=== PATIENT | male | born 1945 | race Caucasian/White ===

== ENCOUNTER 2020-01-16 20:21 | Emergency (ER) | payer MEDICARE, MEDICAID, SELFPAY ==
[2020-01-16 20:25] VITALS: BP 141/82; PULSE 68; RESP 16; TEMP 37.1; O2SAT 98; BMI 22.6
--- NOTE | 2020-01-16 20:42 | W.ED.WOUNDLC ---
HPI - Wound/Laceration General: Chief Complaint: Wound/Laceration Stated Complaint: CAT ATTACK/R HAND Time Seen by Provider: 01/16/20 20:33 Source: patient Mode of arrival: ambulatory Limitations: no limitations History of Present Illness: HPI narrative: Patient was trying to get his sister's cat back in the house when it turned and bit and scratched at his right hand. Patient sustained several skin tears to the right hand. Patient cannot recall last tetanus. Patient is on a anticoagulant. Patient appears well. Patient reports history of coronary artery disease and and medications for heart attack last year. Review of Systems General: Reports: 10 or more systems reviewed and unremarkable except in HPI and below Skin/Breast: Reports: other (Skin tear, laceration.) [facility] ED PFSH: Medical History (Updated 01/16/20 @ 21:12 by SANDRA Nunez) Hyperlipidemia Renal failure Social History Smoking and tobacco status: never smoked Physical Exam Const: COMMON NORMALS: no apparent distress and oriented x3 GENERAL APPEARANCE: cooperative HENMT: COMMON NORMALS: normocephalic, TM's normal bilaterally and external nose normal HEAD & SCALP: normal to inspection and normocephalic NOSE: external nose normal TYMPANIC MEMBRANE: TM's normal bilaterally MOUTH: oral and palatal mucosa normal THROAT: posterior oropharynx normal Eye: GENERAL EYE: normal appearance of both eyes Neck/C-Spine: COMMON NORMALS: full ROM Lymph: LYMPHATIC: no lymphadenopathy noted Chest: COMMONS NORMALS: inspection of chest normal Resp: COMMON NORMALS: normal respiratory effort EFFORT & INSPECTION: Yes able to speak in complete sentences Cardio: COMMON NORMALS: regular rate and regular rhythm RATE: regular rate RHYTHM: regular rhythm GI: COMMON NORMALS: non-tender : COMMON NORMALS: Yes no CVA tenderness BLADDER/KIDNEY EXAM: Yes no CVA tenderness Back/Pelvis: COMMON NORMALS: no CVA tenderness and thoracic and lumbar spine normal to inspection Extremity: COMMON NORMALS: normal to inspection Neuro: COMMON NORMALS: oriented x3 and moves all extremities Psych: COMMON NORMALS: mental status grossly normal and cooperative Skin: NARRATIVE SKIN EXAM: Patient has multiple skin tears and puncture wounds to the right hand. Patient has 1 significant tear that may be classified as a laceration due to its deep tissue involvement. It is in the webbing between the third and fourth digit. Patient has normal range of motion of the hand. Normal sensation and capillary refill. Bleeding is controlled. Procedures Laceration Laceration 1: Site: hand Side (If applicable): right Size (cm): 3 Description: irregular Depth: simple, single layer Local Anesthetic: lidocaine 1% Amount of anesthesia used (mL): 4 Pre-repair: wound explored, irrigated extensively and deep structures intact Skin layer closed with: nylon Size (cm): 4-0 Number of sutures: 4 Technique: simple, interrupted Course Vital Signs: Vital signs: Vital Signs Temperature 98.8 F 01/16/20 20:25 Pulse Rate 68 01/16/20 20:25 Respiratory Rate 16 01/16/20 20:25 Blood Pressure 141/82 01/16/20 20:25 Pulse Oximetry 98 01/16/20 20:25 MDM - Wound/Laceration MDM Narrative: Medical decision making narrative: Patient comes in today with injury to the right hand. On exam there was multiple lacerations to the hand, normal tendon function, and no foreign body. One laceration was significant enough to expose lower layers of the structure. Wounds were closed with Steri-Strips and the larger laceration was closed with 4 sutures. Patient tolerated procedure well. Considered foreign body in the wound, wound infection, need for prophylaxis immunizations, and prophylaxis antibiotic. Patient is tolerated procedure well reviewed postprocedure care. Patient reported understanding. Patient had his tetanus shot up-to-date. Patient reported that immunizations of the cat was up today and it was his sister cat that was a indoor feline. Patient denied any other further concerns patient was placed on Augmentin for prophylaxis. Patient reported understanding. Discharge Plan Discharge Patient Disposition: Home, Self-Care Clinical Impression: Animal scratch Skin tear of hand without complication Qualifiers: Encounter type: initial encounter Laterality: right Qualified Code(s): S61.411A - Laceration without foreign body of right hand, initial encounter Condition: Stable Prescriptions: New amoxicillin-pot clavulanate 875-125 mg tablet 1 tab PO BID Qty: 20 RF: 0 No Action isosorbide mononitrate 30 mg tablet extended release 24 hr 15 mg PO BID Qty: 30 RF: 3 atorvastatin 80 mg tablet 80 mg PO DAILY RF: 0 Brilinta 90 mg tablet 90 mg PO BID RF: 0 aspirin [Adult Low Dose Aspirin] 81 mg tablet,delayed release (DR/EC) 81 mg PO DAILY RF: 0 nitroglycerin [Nitrostat] 0.4 mg tablet, sublingual 0.4 mg SUBLINGUAL Q5M PRN (Reason: chest pain) 30 Days Qty: 25 RF: 3 Discharge Orders: Discharge Order (Routine); Ordered 01/16/20 Ordered By: Min Mata Discharge Diet: Usual diet Discharge Activity: Increase activity as tolerated Patient Instructions: Skin Tear (ED) Activity Restrictions/Additional Instructions: Keep wound clean and dry Keep initial dressing on for 2-3 days unless it becomes wet or soiled Change dressing as needed Clean wound with mild soap and water allow strips to come off on their own Follow-up with primary care in one week Return to ER for worsening pain, or fever Coding Level of Care Code ED Content Production Specialist for Polly Fwanahi Exam Comprehensive
[2020-01-16] MEDS: lidocaine 1% INJ 20 mL 6 ML SUBCUT (21:30)
[2020-01-16] MEDS: amoxicillin-clav 875-125 mg Tablet 1 TAB PO (23:25)
--- NOTE | 2020-01-16 23:32 | PC.NURSE ---
Right hand cleaned and dressed per order, patient tolerated well. Home care instructions given and explained to patient with all questions asked and answered.
== END 2020-01-16 23:34 | disposition home or self-care (01) ==
PROVIDERS: Emergency Provider Nurse Practitioner Family
DX: S61.411A Laceration without foreign body of right hand, initial encounter (principal); W55.03XA Scratched by cat, initial encounter; E78.5 Hyperlipidemia, unspecified; N19 Unspecified kidney failure
CPT/HCPCS: 12002; 12345; 99282; 99283; A6446; J2001

== ENCOUNTER 2021-04-27 07:47 | Emergency (ER) | payer MEDICARE, MEDICAID, SELFPAY ==
[2021-04-27 07:53] VITALS: BP 117/60; PULSE 84; RESP 15; TEMP 37.2; O2SAT 96; BMI 22.4
--- NOTE | 2021-04-27 07:55 | XRR_ITS ---
PROCEDURE INFORMATION: Exam: XR Chest Exam date and time: 04/27/2021 7:55 AM Age: 76 years old Clinical indication: Shortness of breath; Additional info: SOB TECHNIQUE: Imaging protocol: XR of the chest. Views: 2 views. COMPARISON: CR Chest 1 [place] [id number] 08/18/2019 12:08 PM FINDINGS: Lungs: Tiny benign granulomas are present in the lungs. No acute pulmonary infiltrates are seen. Pleural spaces: Unremarkable. No pleural effusion. No pneumothorax. Heart/Mediastinum: Unremarkable. No cardiomegaly. Bones/joints: Unremarkable. XR/XR chest 2V* [id number] IMPRESSION: No acute abnormalities.
--- NOTE | 2021-04-27 07:55 | ECG_ITS ---
[facility] Test Date: 2021-04-27 Pat Name: Dorian Reynoso Department: Room: Gender: Male Executive Vp: : 1945 Requested By: Jigar Arenas Order Number: [id number] Yonathan MD: Maverick Bansal M.D. Measurements Intervals [place] Rate: 76 P: 70 MT: 147 QRS: 52 QRSD: 93 T: 63 QT: 365 QTc: 411 Interpretive Statements SINUS RHYTHM Compared to ECG 08/19/2019 06:03:21 No significant changes Electronically Signed On 04-27-2021 20:06:39 CDT by Maverick Bansal M.D. [email or web address] community [email or web address] [email or web address].[employer]/store/OM/[id number]
--- NOTE | 2021-04-27 07:56 | W.ED.GENADLT ---
HPI - General Adult General: Chief complaint: COVID symptoms Stated complaint: cough, weakness, body aches Time Seen by Provider: 04/27/21 07:52 History of Present Illness: HPI narrative: This patient is a 76-year-old male who presents to the emergency department complaint of body aches and occasional cough. Patient states this been going on since the eighth of the month approximately 10 days. Patient reportedly has had a negative Covid swab. Patient states she just still feels the same really cannot describe how he feels. Patient does not appear to be acutely sick. Denies any history of smoking. Denies fever. Will do medical evaluation treat patient here with significant other with similar symptoms. Onset (ago): day(s) Severity: mild Associated symptoms: Deny chest pain, dyspnea, headache(s), nausea, rash, palpitations or vomiting Review of Systems General: Reports: 10 or more systems reviewed and unremarkable except in HPI and below Const: Denies: fever(s), chills, body aches or fatigue Eyes: Denies: change in vision or blurry vision ENMT: Denies: throat pain, hoarseness or mouth pain Card: Denies: chest pain, palpitations, irregular heart rhythm, edema, swelling of feet/ankles or lightheadedness Resp: Reports: non-productive cough; Denies: dyspnea, productive cough, wheezing or pain on inspiration GI: Denies: abdominal pain, nausea or vomiting : Denies: flank pain, dysuria, urinary frequency, urinary urgency or urinary hesitancy Musc: Denies: neck pain, back pain, extremity pain, extremity swelling, joint pain, joint swelling, joint redness, joint warmth or limited range of motion Skin/Breast: Denies: rash, pruritus, erythema or skin tenderness Neuro: Denies: headache(s), numbness in extremities or weakness in extremities Psych: Denies: anxiety or depression PFSH ED PFSH: Medical History Coronary artery disease Essential hypertension Hyperlipidemia Renal failure Social History Smoking and tobacco status: never smoked Physical Exam Const: COMMON NORMALS: no acute distress, average body habitus, patient oriented x3, no limitations, healthy appearing, alert and well nourished HENMT: COMMON NORMALS: normocephalic, atraumatic, hearing grossly normal bilaterally, external ears normal, EAC's normal, TM's normal bilaterally, Normal external nose present, Normal nasal mucous membranes and turbinates present, moist oral mucous membranes, oropharynx normal, dentition normal and gingiva normal HEAD & SCALP: normocephalic and atraumatic NOSE: Normal external nose present and Normal nasal mucous membranes and turbinates present EXTERNAL EAR: Yes external ears normal EXTERNAL AUDITORY CANAL: EAC's normal TYMPANIC MEMBRANE: TM's normal bilaterally Neck/C-Spine: COMMON NORMALS: full ROM, no lymphadenopathy, supple, no meningeal signs, no JVD, Thyroid normal and No carotid bruits THYROID: Thyroid normal Chest: COMMONS NORMALS: normal inspection of the chest, normal palpation of entire chest wall, normal inspection of the breasts and normal palpation of the breasts Breast/axilla inspection: Yes normal inspection of the breasts BREAST/AXILLA PALPATION: Yes normal palpation of the breasts Resp: COMMON NORMALS: normal respiratory effort, No retractions, No use of accessory muscles, clear to auscultation bilaterally and percussion normal AUSCULTATION: clear to auscultation bilaterally PERCUSSION: percussion normal Cardio: COMMON NORMALS: no JVD, regular rate, regular rhythm, S1 normal heart sound present, S2 normal heart sound present, No gallops present (Cardio), No clicks present (Cardio), No murmurs present (Cardio), No rub (Cardio) and Peripheral pulses 2+ throughout RATE: regular rate RHYTHM: regular rhythm HEART SOUNDS: S1 normal heart sound present and S2 normal heart sound present PERIPHERAL PULSES: Peripheral pulses 2+ throughout GI: COMMON NORMALS: Normal to inspection, nondistended, normoactive bowel sounds present, Soft to palpation, non-tender, No hepatosplenomegaly present, no masses and no bruits PALPATION: Yes Soft to palpation and Yes No hepatosplenomegaly present : COMMON NORMALS: Yes no CVA tenderness BLADDER/KIDNEY EXAM: Yes no CVA tenderness Back/Pelvis: COMMON NORMALS: no CVA tenderness, thoracic and lumbar spine normal to inspection, no thoracic nor lumbar tenderness, thoraco-lumbar ROM normal and straight leg raise negative bilaterally Extremity: COMMON NORMALS: normal to inspection, full ROM, capillary refill normal, no joint enlargement, no clubbing, cyanosis or edema, no calf tenderness and no pedal edema Neuro: COMMON NORMALS: patient oriented x3 SENSORIUM/ORIENTATION: Yes alert MENINGEAL SIGNS: Yes no meningeal signs Course Reevaluation(s): Reevaluation #1: Patient is stable but appears to be Covid positive. Chronic conditions stable. O2 sat 98% on room air vital signs are stable. Patient is encouraged p.o. fluids. Will give patient a shot of Decadron patient be discharged home follow-up with PCP in 1 week patient should self quarantine as instructed. Return to the emergency department as needed Time: 09:09 Vital Signs: Vital signs: Vital Signs Temperature 98.9 F 04/27/21 07:53 Pulse Rate 84 04/27/21 07:53 Respiratory Rate 15 04/27/21 07:53 Blood Pressure 117/60 04/27/21 07:53 Pulse Oximetry 96 04/27/21 07:53 MDM - General Adult MDM Narrative: Medical decision making narrative: Patient appears to be Covid positive. Patient is stable O2 sat 98%. Will discharge patient home with viral syndrome. Patient is stable but appears to be Covid positive. Chronic conditions stable. O2 sat 98% on room air vital signs are stable. Patient is encouraged p.o. fluids. Will give patient a shot of Decadron patient be discharged home follow-up with PCP in 1 week patient should self quarantine as instructed. Return to the emergency department as needed Lab Data: Labs: Lab Results 04/27/21 Range/Units 08:10 SARS-CoV-2 Ag (Rap id) Positive H (Negative) EKG Data^: EKG 1: Attestation: I personally reviewed and interpreted this EKG as follows: EKG interpretation date: 04/27/21 EKG interpretation time: 08:17 Prior EKG tracings: not available for review Interpretation: Sinus rhythm with a heart rate of 76 normal EKG Discharge Plan Discharge Patient Disposition: Home Clinical Impression: Viral infection, COVID-19 Condition: Stable Prescriptions: No Action aspirin [Adult Low Dose Aspirin] 81 mg tablet,delayed release (DR/EC) 81 mg PO DAILY RF: 0 isosorbide mononitrate 30 mg tablet extended release 24 hr 15 mg PO BID Qty: 90 RF: 3 nitroglycerin [Nitrostat] 0.4 mg tablet, sublingual 0.4 mg SUBLINGUAL Q5M PRN (Reason: chest pain) 30 Days Qty: 25 RF: 3 Brilinta 90 mg tablet 90 mg PO BID 90 Days Qty: 180 RF: 3 atorvastatin 80 mg tablet 80 mg PO DAILY Qty: 90 RF: 3 Discharge Orders: Discharge ED (Routine); Ordered 04/27/21 Ordered By: Jigar Arenas Discharge Diet: Advance as tolerated Discharge Activity: Resume usual activity Patient Instructions: Opioid Safety Activity Restrictions/Additional Instructions: Encourage p.o. fluids. Tylenol Motrin as needed for fever pain. Self quarantine as instructed. Follow-up with PCP in 7 to 10 days. Return to the emergency department as needed. Coding Level of Care Code ED Telecommunications Project Manager for Polly Fwanahi Exam Comprehensive
[2021-04-27 08:47] LABS: SARS Covid-2 Antigen Positive (Negative)
[2021-04-27 08:59] VITALS: O2SAT 96
[2021-04-27 10:15] VITALS: BP 124/66; PULSE 85; O2SAT 96
[2021-04-27] MEDS: dexamethasone 10 mg/mL INJ IM (10:15)
== END 2021-04-27 10:13 | disposition home or self-care (01) ==
PROVIDERS: Emergency Provider Emergency Medicine
DX: U07.1 COVID-19 (principal); Z79.82 Long term (current) use of aspirin; I25.10 Atherosclerotic heart disease of native coronary artery without angina pectoris; I10 Essential (primary) hypertension; E78.5 Hyperlipidemia, unspecified
CPT/HCPCS: 71046; 87426; 93005; 96372; 99283; J1100

== ENCOUNTER → 2022-06-03 13:06 | Outpatient (BNVA) | payer MEDICARE, MEDICAID, SELFPAY | PROVIDERS: Visit Provider Internal Medicine Cardiovascular Disease | DX: I25.10 Atherosclerotic heart disease of native coronary artery without angina pectoris (principal); I10 Essential (primary) hypertension; E78.00 Pure hypercholesterolemia, unspecified | CPT/HCPCS: 99213; 99214 ==

== ENCOUNTER → 2022-12-08 12:56 | Outpatient (BNVA) | payer MEDICARE, MEDICAID, SELFPAY | PROVIDERS: Visit Provider Internal Medicine | DX: I25.10 Atherosclerotic heart disease of native coronary artery without angina pectoris (principal); E78.00 Pure hypercholesterolemia, unspecified; I12.9 Hypertensive chronic kidney disease with stage 1 through stage 4 chronic kidney disease, or unspecified chronic kidney disease; N18.9 Chronic kidney disease, unspecified | CPT/HCPCS: 99214 ==

== ENCOUNTER 2023-09-19 13:07 | Emergency (ER) | payer MEDICARE, MEDICAID, SELFPAY ==
[2023-09-19 13:12] VITALS: BP 140/83; PULSE 101; RESP 17; TEMP 36.3; O2SAT 98
--- NOTE | 2023-09-19 13:22 | ED_ITS ---
HPI - SOB/Dyspnea 2 General: Chief Complaint: Shortness of Breath/Dyspnea Stated Complaint: SOB Time Seen by Provider: 09/19/23 13:22 History of Present Illness: HPI Narrative: 78-year-old male presents emerged part w ith complaints of shortness of breath that started yesterday. He states he has not had any past medical history which includes breathing issues but does endorse having a cardiac stent placed previously. He states he is not taking any of his prescribed medications and denies any previous home oxygen use. He states that he has increased exertional dyspnea since yesterday. He also states he has increased fatigue and weakness as well as a nonspecific nonproductive cough. Review of Systems 2 General: Reports: 10 or more systems reviewed and unremarkable except in HPI and below Const: Reports: fatigue and malaise Resp: Reports: dyspnea and non-productive cough PFSH ED 2 PFSH: Medical History Coronary artery disease Essential hypertension Hyperlipidemia Renal failure Social History Smoking and tobacco/nicotine status: never used tobacco/nicotine Physical Exam 2 Narrative: EXAM NARRATIVE: Constitutional: the patient appears well nourished and with normal development. Vital signs reviewed as documented. HENMT: Normocephalic, atraumatic. Extermal ears with normal appearance without drainage. Nose without drainage, normal appearance. Mucus membranes moist. Neck is supple, No jugular venous distension, trachea is midline, no appreciable carotid bruits. No lymphadenopathy. No meningeal signs. Flexion, extension and lateral rotation is without pain. Eyes: Pupils are equal, round, reactive to light and accommodation. No scleral icterus. Extra-ocular movement are intact. Thorax is symmetrical and with equal rise and fall with respirations. Resp: Lungs are clear to auscultation. No wheezes, rales, crackles or ronchi at present. Cardio: Regular rate and rhythm. Positive S1, S2. No appreciable murmurs, rubs or gallops. GI: Abdominal exam reveals normal bowel sounds to all quadrants. No organomegaly. No obvious palpable masses noted. No hepatomegally appreciated. Soft, nontender to palpation. Extremity: Extremities are non-edematous and both femoral and pedal pulses are 2+ and equal bilaterally. Moves all extremities well, sensation in all extremities. Neuro: Alert and oriented x4, person, place, time and situation. Cranial nerves II through XII are grossly intact, there is no focal neurological deficits that I can appreciate at present. Motor strength in the upper and lower extremities are equal and bilateral 5/5. Psych: Cooperative, calm, normal thought process, appropriate judgment. Skin: No lesions, rashes. No gross abnormalities noted. Back: Symmetrical, no obvious deformity, No CVA tenderness Course 2 Reevaluation(s): Reevaluation #1: Patient and the patient's family member state that they need to leave because no one drives after dark. I did advise them that the labs that I have resulted do not show any significant findings and did encourage them to stay for the second cardiac enzyme I stated that they would follow-up with the patient's primary care physician. I did advise them that they may return to the emergency department at any time for any reason and at present it does look like the patient has a upper respiratory viral illness. I did encourage and discussed the importance of taking his medications as previously prescribed by his primary care provider and rug setter axminster. I also encouraged him to follow-up with a rug setter [place] to discuss that he had discontinued his medications and to discuss with the primary care provider and rug setter axminster the plan of care for restarting his medications. Time: 15:30 Vital Signs: Vital signs: Vital Signs Temperature 97.4 F L 09/19/23 13:12 Pulse Rate 101 H 09/19/23 13:12 Respiratory Rate 17 09/19/23 13:12 Blood Pressure 140/83 09/19/23 13:12 Pulse Oximetry 98 09/19/23 13:12 Oxygen Delivery Me thod Room Air 09/19/23 13:12 MDM - SOB/Dyspnea Medical Decision Making Physical exam completed and documented, I will obtain serial cardiac enzymes, serial twelve-lead EKGs, chest x-ray, CBC, CMP, urinalysis, B-type natriuretic peptide, PT/PTT/INR, and a chest x-ray. I have reviewed any previous and pertinent medical records for assist in obtaining beneficial medical information to improved the care and treatment of the patient. Medical Records I reviewed the patient's medical records. Lab Data I reviewed the patient's lab results. 09/19/23 13:12 09/19/23 13:12 Labs/Radiology: Radiology Impressions Chest X-Ray 09/19/23 13:24 IMPRESSION: No acute findings. Laboratory Results WBC 9.41 10^3/uL (3.29-11.43) 09/19/23 13:12 RBC 4.10 10^6/uL (3.85-5.65) 09/19/23 13:12 Hgb 13.20 g/dL (11.27-16.99) 09/19/23 13:12 Hct 40.5 % (37-53) 09/19/23 13:12 MCV 98.8 fl (82-101) 09/19/23 13:12 MCH 32.2 pg (27-33) 09/19/23 13:12 MCHC 32.6 g/dL (30-55) 09/19/23 13:12 RDW 14.0 % (12.1-15.1) 09/19/23 13:12 Plt Count 239 10^3/cmm (157-399) 09/19/23 13:12 MPV 10.0 fL (7.4-10.4) 09/19/23 13:12 Neut % (Auto) 78.7 % 09/19/23 13:12 Lymph % (Auto) 13.6 % 09/19/23 13:12 [place] % (Auto) 6.6 % 09/19/23 13:12 Eos % (Auto) 0.3 % 09/19/23 13:12 Baso % (Auto) 0.4 % 09/19/23 13:12 Neut # (Auto) 7.40 10^3/uL (1.8-7.7) 09/19/23 13:12 Lymph # (Auto) 1.3 10^3/uL (0.8-4.8) 09/19/23 13:12 [place] # (Auto) 0.6 10^3/uL (0.2-0.9) 09/19/23 13:12 Eos # (Auto) 0.0 10^3/uL (0.0-0.8) 09/19/23 13:12 Baso # (Auto) 0.0 10^3/uL (0.0-0.1) 09/19/23 13:12 Nucleated RBC % (auto) 0 % 09/19/23 13:12 Nucleated RBCs # 0.0 /100WBC 09/19/23 13:12 PT 13.30 SECONDS (12.1-14.9) 09/19/23 13:12 INR 0.99 (0.8-1.2) 09/19/23 13:12 Sodium 134 mmol/L (136-145) L 09/19/23 13:12 Potassium 4.3 mmol/L (3.5-5.1) 09/19/23 13:12 Chloride 98 mmol/L (98-107) 09/19/23 13:12 Carbon Dioxide 23 mmol/L (22-29) 09/19/23 13:12 Anion Gap 17.3 (5-19) 09/19/23 13:12 BUN 13 mg/dL (8-23) 09/19/23 13:12 Creatinine 1.3 mg/dL (0.7-1.2) H 09/19/23 13:12 GFR Calculation Not Reportable 09/19/23 13:12 Glucose 117 mg/dL (65-115) H 09/19/23 13:12 Calculated Osmolality 279 mOsm/kg (285-295) L 09/19/23 13:12 Calcium 9.9 mg/dL (8.5-10.5) 09/19/23 13:12 Total Bilirubin 0.7 mg/dL (0.15-1.2) 09/19/23 13:12 AST 19 U/L (0-40) 09/19/23 13:12 ALT 10 U/L (0-41) 09/19/23 13:12 Alkaline Phosphatase 78 U/L (40-130) 09/19/23 13:12 Troponin T Baseline < 6 ng/L (0-15) 09/19/23 13:12 NT-Pro-B Natriuret Pep 90 pg/mL (0-450) 09/19/23 13:12 Total Protein 7.2 g/dL (6.6-8.7) 09/19/23 13:12 Albumin 4.3 g/dL (3.5-5.2) 09/19/23 13:12 Globulin 2.9 g/dL (1.3-4.6) 09/19/23 13:12 Influenza Type A Ag negative (Negative) 09/19/23 13:57 Influenza Type B Ag negative (Negative) 09/19/23 13:57 SARS-CoV-2 Ag (Rapid) negative (Negative) 09/19/23 13:57 All radiology interpretation(s) finalized by discharge EKG Data EKG 1: Interpretation: Twelve-lead EKG obtained at 1355 and reviewed at 1356 demonstrates normal sinus rhythm with a right incomplete bundle branch block. Ventricular rate is 99 [place] interval 153 QRS duration 94 QT 332, QTc 388. There is no ST elevation or depression to demonstrate acute ischemia or infarction at present. Discharge Plan Discharge Patient Disposition: Home Clinical Impression: Acute dyspnea, Upper respiratory infection, viral Condition: Stable Prescriptions: No Action aspirin [Adult Low Dose Aspirin] 81 mg tablet,delayed release (DR/EC) 81 mg PO DAILY Qty: 90 3RF atorvastatin 80 mg tablet 80 mg PO DAILY Qty: 90 3RF isosorbide mononitrate 30 mg tablet extended release 24 hr 15 mg PO BID Qty: 90 3RF Brilinta 90 mg tablet 90 mg PO BID Qty: 180 3RF nitroglycerin [Nitrostat] 0.4 mg tablet, sublingual 0.4 mg SUBLINGUAL Q5M PRN (Reason: chest pain) Qty: 25 3RF Rx Instructions: until response; do not exceed 3 doses per episode Discharge Orders: Discharge ED (Routine); Ordered 09/19/23 Ordered By: Tam Farah Discharge Diet: Advance as tolerated Discharge Activity: Resume usual activity Patient Instructions: Opioid Safety, Pain Management Activity Restrictions/Additional Instructions: Activity Restrictions/Additional Instructions: Thank you for choosing [facility] for your healthcare needs today. Please realize that you were seen in the Emergency Department and that we are providing you with an emergency medical screening exam and this may not be a complete and all inclusive of all the testing and or medical work-up that you may need to determine your ailment or severity of your illness. It is very important that you follow-up as instructed with your Primary care provider or Specialist for additional evaluation and to discuss your medical treatment plan. You may return to the Emergency Department should you have concerns or if your condition changes or worsens in any way. Coding Level of Care Code ED Electrical Assembler for Polly Cristina
--- NOTE | 2023-09-19 13:24 | ECG_ITS ---
[facility] Test Date: 2023-09-19 Pat Name: Dorian Reynoso Department: Room: Gender: Male Child And Youth Program Assistant: : 1945 Requested By: Tam Farah Order Number: [id number] Yonathan MD: Reggie Juarez M.D. Measurements Intervals [place] Rate: 99 P: 76 VT: 153 QRS: 62 QRSD: 94 T: 57 QT: 332 QTc: 426 Interpretive Statements SINUS RHYTHM INCOMPLETE RIGHT BUNDLE BRANCH BLOCK [90+ ms QRS DURATION, TERMINAL R IN V1/V2, 40+ ms S IN I/aVL/V4/V5/V6] Compared to ECG 04/27/2021 08:17:57 Incomplete right bundle-branch block now present Electronically Signed On 09-20-2023 15:53:10 SOUND PERSON by Reggie Juarez M.D. [id number]
--- NOTE | 2023-09-19 13:24 | XRR_ITS ---
PROCEDURE INFORMATION: Exam: XR Chest Exam date and time: 09/19/2023 1:33 PM Age: 78 years old Clinical indication: Dyspnea TECHNIQUE: Imaging protocol: Radiologic exam of the chest. Views: 1 view. COMPARISON: CR XR chest 2V* [id number] 04/27/2021 8:28 AM FINDINGS: Lungs: There is minimal atelectasis in the left lung base without definite infiltrate there is a calcified granuloma in the right lung as before Pleural spaces: Unremarkable. No pleural effusion. No pneumothorax. Heart/Mediastinum: Unremarkable. No cardiomegaly. Bones/joints: Unremarkable. XR/XR chest 1V portable [id number] IMPRESSION: No acute findings.
--- NOTE | 2023-09-19 13:54 | PC.PHAR ---
pt states has not taken any of his medications in about a month. 09/19/23
[2023-09-19 14:03] LABS: Basophils % 0.4 %; Eosinophils % 0.3 %; Hematocrit 40.5 % (37-53); Lymphocytes # 1.3 10^3/uL (0.8-4.8); Lymphocytes % 13.6 %; Mean Corpuscular HGB Conc 32.6 g/dL (30-55); Mean Corpuscular Hemoglobin 32.2 pg (27-33); Mean Corpuscular Volume 98.8 fl (82-101); Monocytes # 0.6 10^3/uL (0.2-0.9); Monocytes % 6.6 %; Neutrophils % 78.7 %; Nucleated Red Blood Cells % 0 %; Platelet Count 239 10^3/cmm (157-399); White Blood Count 9.41 10^3/uL (3.29-11.43)
[2023-09-19 14:20] LABS: INR 0.99 (0.8-1.2)
[2023-09-19 14:23] LABS: Influenza A by IFA negative (Negative); Influenza B by IFA negative (Negative); SARS Covid-2 Antigen negative (Negative)
[2023-09-19 14:27] LABS: Troponin(5th) Baseline < 6 ng/L (0-15)
[2023-09-19 14:37] LABS: Alanine Aminotransferase 10 U/L (0-41); Albumin Level 4.3 g/dL (3.5-5.2); Alkaline Phosphatase 78 U/L (40-130); Anion Gap 17.3 (5-19); Aspartate Amino Transferase 19 U/L (0-40); Blood Urea Nitrogen 13 mg/dL (8-23); Calcium 9.9 mg/dL (8.5-10.5); Carbon Dioxide 23 mmol/L (22-29); Chloride 98 mmol/L (98-107); Globulin 2.9 g/dL (1.3-4.6); Glucose 117 mg/dL (65-115); NT Pro B Type Natriuretic Pept 90 pg/mL (0-450); Osmolality Calculated 279 mOsm/kg (285-295); Potassium 4.3 mmol/L (3.5-5.1); Sodium 134 mmol/L (136-145); Total Bilirubin 0.7 mg/dL (0.15-1.2); Total Protein 7.2 g/dL (6.6-8.7)
[2023-09-19 15:46] LABS: Troponin 5 2HR 8.87 ng/L (0-15)
[2023-09-19 16:06] VITALS: BP 110/59; PULSE 102; O2SAT 97
== END 2023-09-19 16:08 | disposition home or self-care (01) ==
PROVIDERS: Emergency Provider Internal Medicine
DX: J06.9 Acute upper respiratory infection, unspecified (principal); R06.00 Dyspnea, unspecified; Z79.82 Long term (current) use of aspirin; Z11.52 Encounter for screening for COVID-19; I25.10 Atherosclerotic heart disease of native coronary artery without angina pectoris; I10 Essential (primary) hypertension; E78.5 Hyperlipidemia, unspecified
CPT/HCPCS: 36415; 71045; 80053; 83880; 84484; 85025; 85610; 87426; 87804; 93005; 99285

== ENCOUNTER 2023-12-08 11:52 | Emergency (ER) | payer MEDICARE, MEDICAID, SELFPAY ==
[2023-12-08] VITALS (48 sets, daily range): BP systolic 75–126; BP diastolic 51–88; PULSE 52–114; RESP 14–31; TEMP 37.8–38.4; O2SAT 91–99; BMI 21.7
--- NOTE | 2023-12-08 11:56 | XR_ITS ---
WS: [id number] Exam: XR chest 1V portable [id number] Date/Time of Exam: 12/08/2023 12:12 PM Reason For Exam: cp Comparison 09/19/2023. The lungs are clear and fully expanded. Normal cardiomediastinal silhouette and regional bony element s. Scattered calcified granulomas in both lungs. No pleural effusions. IMPRESSION: 1. No acute cardiopulmonary finding.
--- NOTE | 2023-12-08 11:56 | ECG_ITS ---
[facility] Test Date: 2023-12-08 Pat Name: Dorian Reynoso Department: Room: Gender: Male Media Specialist: : 1945 Requested By: Will Sarmiento Order Number: [id number] Yonathan MD: Lex Choudhury M.D. Measurements Intervals [place] Rate: 98 P: 80 [place]: 140 QRS: 24 QRSD: 104 T: 44 QT: 336 QTc: 431 Interpretive Statements SINUS RHYTHM INDETERMINATE AXIS LOW QRS VOLTAGE IN PRECORDIAL LEADS [QRS DEFLECTION < 1.0 mV IN CHEST LEADS] INCOMPLETE RIGHT BUNDLE BRANCH BLOCK [90+ ms QRS DURATION, TERMINAL R IN V1/V2, 40+ ms S IN I/aVL/V4/V5/V6] Compared to ECG 09/19/2023 13:55:12 Indeterminate axis now present Low QRS voltage now present Electronically Signed On 12-08-2023 12:09:28 CARBONIZER by Lex Choudhury M.D. [id number] f
[2023-12-08 12:45] LABS: Basophils % 0.3 %; Hematocrit 39.7 % (37-53); Lymphocytes # 0.8 10^3/uL (0.8-4.8); Lymphocytes % 11.2 %; Mean Corpuscular HGB Conc 32.7 g/dL (30-55); Mean Corpuscular Hemoglobin 32.7 pg (27-33); Mean Platelet Volume 9.6 fL (7.4-10.4); Monocytes # 0.3 10^3/uL (0.2-0.9); Monocytes % 3.8 %; Neutrophils # 5.96 10^3/uL (1.8-7.7); Neutrophils % 84.3 %; Nucleated Red Blood Cells % 0 %; Platelet Count 171 10^3/cmm (157-399); Red Blood Count 3.97 10^6/uL (3.85-5.65); White Blood Count 7.07 10^3/uL (3.29-11.43)
--- NOTE | 2023-12-08 13:14 | ED_ITS ---
HPI - Weakness 2 General: Chief complaint: Weakness Stated complaint: chest pain Time Seen by Provider: 12/08/23 13:13 History of Present Illness: 78-year-old male patient comes in today for complaints of weakness and malaise. Patient reports for the last 3 days he has been having bodyaches and occasional cough. Patient's female significant other states that usually he comes over every evening for dinner and to watch TV. For the last 2 days he stayed at her house because he has been feeling more poorly. Patient was brought in today due to to persistent symptoms and worsening condition. Patient has a history of OH 4 years ago with 2 stents placed. Patient takes routinely to antiplatelet agents, isosorbide, and atorvastatin. Patient appears in no pain. Patient appears unwell but not toxic. Patient denies history of diabetes or high blood pressure. Review of Systems 2 General: Reports: 10 or more systems reviewed and unremarkable except in HPI and below : Reports: urinary frequency PFSH ED 2 PFSH: Medical History Coronary artery disease Essential hypertension Hyperlipidemia Renal failure Social History Smoking and tobacco/nicotine status: never used tobacco/nicotine Physical Exam 2 Const: COMMON NORMALS: alert HENMT: COMMON NORMALS: normocephalic HEAD & SCALP: normocephalic Neck/C-Spine: COMMON NORMALS: no meningeal signs Resp: COMMON NORMALS: normal respiratory effort and clear to auscultation bilaterally AUSCULTATION: clear to auscultation bilaterally Cardio: COMMON NORMALS: regular rate RATE: regular rate GI: COMMON NORMALS: Soft to palpation and non-tender PALPATION: Yes Soft to palpation : COMMON NORMALS: Yes no CVA tenderness BLADDER/KIDNEY EXAM: Yes no CVA tenderness Back/Pelvis: COMMON NORMALS: no CVA tenderness and thoracic and lumbar spine normal to inspection Extremity: NARRATIVE EXTREMITY EXAM: Bilateral +1 edema to the ankles Neuro: SENSORIUM/ORIENTATION: Yes alert MENINGEAL SIGNS: Yes no meningeal signs Psych: COMMON NORMALS: cooperative Skin: COMMON NORMALS: turgor normal GENERAL SKIN EXAM: turgor normal Course 2 Vital Signs: Vital signs: Vital Signs Temperature 100.0 F H 12/08/23 15:38 Pulse Rate 83 12/08/23 15:38 Respiratory Rate 22 H 12/08/23 15:38 Blood Pressure 100/54 12/08/23 15:38 Pulse Oximetry 94 12/08/23 15:38 Oxygen Delivery Me thod Room Air 12/08/23 12:03 MDM - Weakness Medical Decision Making 70-year-old male patient comes in today with illness x 3 days. Patient has a cough and bodyaches and fever. Patient also reports some urinary frequency. Exam notes air movement throughout lung daley. Abdomen soft nontender. Active bowel sounds. Skin is warm and dry. Mild edema is noted to the lower extremities. Vital signs note a blood pressure of 96/56, pulse 100, and a temperature of 101.2. O2 sats is 93% on room air. Differential diagnosis includes upper respiratory infection, COVID, influenza, pneumonia, urinary tract infection, sepsis. Patient tested positive for influenza A. Chest x-ray noted no pneumonia. CBC was unremarkable. CMP noted a sodium 125, potassium 3.4, and creatinine 1.2. Patient does have some chronic kidney disease with a potassium that usually runs between 1.1 and 1.3. Believe the patient does have some mild dehydration. We went ahead and treated dehydration with 2 L of IV fluids. Patient had improvement of symptoms. Patient was discharged home in stable condition. Lab Data 12/08/23 12:28 12/08/23 12:28 Laboratory Results WBC 7.07 10^3/uL (3.29-11.43) 12/08/23 12:28 RBC 3.97 10^6/uL (3.85-5.65) 12/08/23 12:28 Hgb 13.00 g/dL (11.27-16.99) 12/08/23 12:28 Hct 39.7 % (37-53) 12/08/23 12:28 MCV 100.0 fl (82-101) 12/08/23 12:28 MCH 32.7 pg (27-33) 12/08/23 12:28 MCHC 32.7 g/dL (30-55) 12/08/23 12:28 RDW 14.0 % (12.1-15.1) 12/08/23 12:28 Plt Count 171 10^3/cmm (157-399) 12/08/23 12:28 MPV 9.6 fL (7.4-10.4) 12/08/23 12: Neut % (Auto) 84.3 % 12/08/23 12: Lymph % (Auto) 11.2 % 12/08/23 12: [place] % (Auto) 3.8 % 12/08/23 12: Eos % (Auto) 0.0 % 12/08/23 12: Baso % (Auto) 0.3 % 12/08/23 12: Neut # (Auto) 5.96 10^3/uL (1.8-7.7) 12/08/23 12: Lymph # (Auto) 0.8 10^3/uL (0.8-4.8) 12/08/23 12: [place] # (Auto) 0.3 10^3/uL (0.2-0.9) 12/08/23 12: Eos # (Auto) 0.0 10^3/uL (0.0-0.8) 12/08/23 12: Baso # (Auto) 0.0 10^3/uL (0.0-0.1) 12/08/23 12: Nucleated RBC % (auto) 0 % 12/08/23 12: Nucleated RBCs # 0.0 /100WBC 12/08/23 12: Sodium 125 mmol/L (136-145) L 12/08/23 12: Potassium 3.4 mmol/L (3.5-5.1) L 12/08/23 12: Chloride 92 mmol/L (98-107) L 12/08/23 12: Carbon Dioxide 19 mmol/L (22-29) L 12/08/23 12:28 Anion Gap 17.4 (5-19) 12/08/23 12:28 BUN 18 mg/dL (8-23) 12/08/23 12: Creatinine 1.2 mg/dL (0.7-1.2) 12/08/23 12:28 GFR Calculation Not Reportable 12/08/23 12: Glucose 94 mg/dL (65-115) 12/08/23 12:28 Calculated Osmolality 262 mOsm/kg (285-295) L 12/08/23 12:28 Lactic Acid 1.1 mmol/L (0.5-2.2) 12/08/23 15:01 Calcium 8.6 mg/dL (8.5-10.5) 12/08/23 12:28 Total Bilirubin 0.6 mg/dL (0.15-1.2) 12/08/23 12:28 AST 34 U/L (0-40) 12/08/23 12:28 ALT 10 U/L (0-41) 12/08/23 12:28 Alkaline Phosphatase 69 U/L (40-130) 12/08/23 12:28 Troponin T Baseline 14 ng/L (0-15) 12/08/23 12:28 Troponin T 120 Minute 13.81 ng/L (0-15) 12/08/23 15:01 Delta Troponin T -0.19 ABS# (0-10) L 12/08/23 15:01 Total Protein 7.1 g/dL (6.6-8.7) 12/08/23 12:28 Albumin 3.6 g/dL (3.5-5.2) 12/08/23 12:28 Globulin 3.5 g/dL (1.3-4.6) 12/08/23 12:28 Lipase 49 U/L (13-60) 12/08/23 12:28 Influenza Type A Ag positive (Negative) H 12/08/23 13:50 Influenza Type B Ag negative (Negative) 12/08/23 13:50 SARS-CoV-2 Ag (Rapid) negative (Negative) 12/08/23 13:50 All radiology interpretation(s) finalized by discharge EKG Data EKG 1: I personally reviewed and interpreted this EKG as follows: EKG interpretation date: 12/08/23 EKG interpretation time: 14:08 Prior EKG tracings: not available for review Interpretation: EKG shows sinus rhythm with a regular rate at [address] elevation or ectopy is noted. Artifact is noted on the EKG. No prior exam was available for comparison. Computer generated interpretation: Sinus rhythm, incomplete right bundle branch block, borderline EKG, unconfirmed report. Discharge Plan Discharge Patient Disposition: Home Clinical Impression: Influenza, Dehydration Condition: Stable Prescriptions: No Action isosorbide mononitrate 30 mg tablet extended release 24 hr 15 mg PO BID Qty: 90 3RF Brilinta 90 mg tablet 90 mg PO BID Qty: 180 3RF nitroglycerin [Nitrostat] 0.4 mg tablet, sublingual 0.4 mg SUBLINGUAL Q5M PRN (Reason: chest pain) Qty: 25 3RF Rx Instructions: until response; do not exceed 3 doses per episode atorvastatin 80 mg tablet 80 mg PO BEDTIME Adult Low Dose Aspirin 81 mg tablet,delayed release (DR/EC) 81 mg PO QAM Discharge Orders: Discharge ED (Routine); Ordered 12/08/23 Ordered By: Min Mata Discharge Diet: Advance as tolerated Discharge Activity: Increase activity as tolerated Patient Instructions: Influenza (ED) Activity Restrictions/Additional Instructions: Increase activity as tolerated. Drink plenty of water and fluids. Healthy diet and exercise. Follow-up with primary care in 2 to 3 days for recheck. Return to ED for persistent worsening symptoms, increasing shortness of breath, or new concerns. Coding Level of Care Code ED Name Plate Stamping Machine Operator for Polly Cristina
[2023-12-08 13:17] LABS: Alanine Aminotransferase 10 U/L (0-41); Albumin Level 3.6 g/dL (3.5-5.2); Alkaline Phosphatase 69 U/L (40-130); Anion Gap 17.4 (5-19); Aspartate Amino Transferase 34 U/L (0-40); Blood Urea Nitrogen 18 mg/dL (8-23); Calcium 8.6 mg/dL (8.5-10.5); Carbon Dioxide 19 mmol/L (22-29); Chloride 92 mmol/L (98-107); Creatinine Clr Calc Pharmacy 45.0462; Globulin 3.5 g/dL (1.3-4.6); Glucose 94 mg/dL (65-115); Lipase 49 U/L (13-60); Osmolality Calculated 262 mOsm/kg (285-295); Potassium 3.4 mmol/L (3.5-5.1); Sodium 125 mmol/L (136-145); Total Bilirubin 0.6 mg/dL (0.15-1.2); Total Protein 7.1 g/dL (6.6-8.7)
[2023-12-08 13:29] LABS: Troponin(5th) Baseline 14 ng/L (0-15)
[2023-12-08] MEDS: acetaminophen 500 mg Tablet 1000 MG PO (13:51)
[2023-12-08] MEDS: sodium chloride 0.9% 1,000 ML 999 ML IV (13:55)
--- NOTE | 2023-12-08 13:56 | ECG_ITS ---
[facility] Test Date: 2023-12-08 Pat Name: Dorian Reynoso Department: Room: Gender: Male Vessel Scrapper: : 1945 Requested By: Will Sarmiento Order Number: [id number] Yonathan MD: Lex Choudhury M.D. Measurements Intervals [place] Rate: 90 P: 82 [place]: 143 QRS: 45 QRSD: 106 T: 57 QT: 341 QTc: 418 Interpretive Statements SINUS RHYTHM INCOMPLETE RIGHT BUNDLE BRANCH BLOCK [90+ ms QRS DURATION, TERMINAL R IN V1/V2, 40+ ms S IN I/aVL/V4/V5/V6] Compared to ECG 12/08/2023 11:57:33 Indeterminate axis no longer present Electronically Signed On 12-08-2023 15:27:21 SENIOR RECRUITER by Lex Choudhury M.D. [id number]
[2023-12-08 14:05] LABS: Influenza A by IFA positive (Negative); Influenza B by IFA negative (Negative)
[2023-12-08 14:10] LABS: SARS Covid-2 Antigen negative (Negative)
--- NOTE | 2023-12-08 14:42 | PC.PHAR ---
pt and pts verified pts medications-pt states he is taking aspirin 81mg daily,lipitor 80mg hs.brilinta 90mg bid,isosorbide mono er 30mg takes 15mg bid pt states fills at [facility]-called [facility] wp to verify when last filled [facility] states last filled 06/04/2022-
[2023-12-08 15:37] LABS: Lactic Sepsis W/Reflex 1.1 mmol/L (0.5-2.2)
[2023-12-08] MEDS: lactated ringers 1,000 ML 999 ML IV (15:37)
[2023-12-08 15:48] LABS: Troponin 5 2HR 13.81 ng/L (0-15)
[2023-12-08 15:53] LABS: Troponin 5 2HR Delta -0.19 ABS# (0-10)
== END 2023-12-08 17:18 | disposition home or self-care (01) ==
PROVIDERS: Emergency Medicine; Emergency Provider Nurse Practitioner Family
DX: J10.1 Influenza due to other identified influenza virus with other respiratory manifestations (principal); E86.0 Dehydration; Z79.82 Long term (current) use of aspirin; Z11.52 Encounter for screening for COVID-19; I25.10 Atherosclerotic heart disease of native coronary artery without angina pectoris; I10 Essential (primary) hypertension; E78.5 Hyperlipidemia, unspecified
CPT/HCPCS: 36415; 71045; 80053; 83605; 83690; 84484; 85025; 87040; 87426; 87804; 93005; 99285; J7030; J7120

== ENCOUNTER → 2024-05-01 11:08 | Outpatient (BNVA) | payer MEDICARE, MEDICAID, SELFPAY | PROVIDERS: Visit Provider Internal Medicine Cardiovascular Disease | DX: I10 Essential (primary) hypertension (principal); I25.10 Atherosclerotic heart disease of native coronary artery without angina pectoris; E78.00 Pure hypercholesterolemia, unspecified | CPT/HCPCS: 99213 ==